=== PATIENT | male | born 1960 | race Caucasian/White ===

== ENCOUNTER 2021-11-22 17:24 | Observation (INO) ==
[2021-11-22] MEDS ORDERED: ACETAMINOPHEN 1000 MG/100 ML IV IV STA (17:52)
[2021-11-22] MEDS ORDERED: MoRPHine SULFATE 4 MG/ML 1 ML CARP\\VIAL IV PRN ×2 (17:52→20:18)
[2021-11-22] MEDS ORDERED: ONDANSETRON INJ 2 MG/ML 2 ML VIAL IV STA (17:52)
[2021-11-22] MEDS ORDERED: SODIUM CHLORIDE 0.9% 1000ML 1,000 ML IV STA (17:52)
[2021-11-22] MEDS ORDERED: KETOROLAC TROMETHAMINE 15 MG/ML VIAL IV STA (17:52)
--- NOTE | 2021-11-22 17:56 | Emergency Department Note ---
Impression & Plan RLQ abdominal pain, Renal colic, Ureteral stone ED Provider Note NAME: KAIA BLACK AGE: 60 SEX: M : 1960 ARRIVES VIA: Walk-In INFORMANT: [Patient] ED PROVIDER(S): [Damian Ramires MD] CHIEF COMPLAINT: Abdominal pain HISTORY OF PRESENT ILLNESS: The patient is a 60-year-old male who presents with several hours of increasing severe crampy lower abdominal pain. No nausea or vomiting, no fever, no diarrhea. The pain has become severe and he is beginning to sweat. The patient felt fine in the earlier part of the day. He has not been sick or ill. He has no history of similar issues. No surgical work on his abdomen. He has undergone a hip replacement in the recent past. The patient denies any bad food eaten, he has had no sick contacts. He cannot recall ever feeling this way before. REVIEW OF SYSTEMS: See HPI for pertinent positives and negatives. A total of ten systems were reviewed and were otherwise negative. PMHx/PSHx: See Below SOCIAL HISTORY: See Below. PHYSICAL EXAM: GENERAL: Patient is in moderate distress from pain. HEENT: No acute trauma, normocephalic atraumatic, mucous membranes moist, no nasal congestion, no scleral icterus. NECK: No stridor, no adenopathy, no meningismus, trachea is midline. LUNGS: Clear to auscultation bilaterally, no wheeze, no rhonchi, breath sounds equal. HEART: Without murmurs gallops or rubs, regular rate and rhythm. ABDOMEN: Soft, bowel sounds are hyperactive. No peritonitis. He is moderately tender in the right lower quadrant. No obvious hernia. EXTREMITIES: No cyanosis or edema, full range of motion of all the joints without pain or difficulty, no signs for acute trauma. NEUROLOGIC: Oriented x 3, no acute motor or sensory deficits, no focal weakness. SKIN: No rash, no jaundice, no diaphoresis. Groin: There is no obvious hernia, testicles nontender. DIFFERENTIAL DIAGNOSIS: Appendicitis, testicular torsion, diverticulitis, foodborne or viral illness, UTI, obstruction, mesenteric ischemia, aortic pathology, inflammatory bowel disease, renal colic, PUD, pancreatitis, biliary pathology, hernia, volvulus, constipation, as well as other pathologies. EMERGENCY DEPARTMENT COURSE/PROCEDURES: MEDICAL DECISION MAKING: There is no leukocytosis. The patient does have a very mild anemia. There is a normal platelet count. No concerning electrolyte abnormality, no renal failure. No worrisome liver enzyme elevation. No evidence for pancreatitis. Urinalysis shows hematuria, no infection. COVID test returned negative. Abdominal and pelvis CT shows a large 10 mm right distal ureteral stone with hydronephrosis. On exam, the patient appeared quite uncomfortable. The patient was quite uncomfortable with my initial evaluation. He received IV saline, IV Zofran, IV morphine and IV Toradol. He eventually received a dose of IV Dilaudid. He was given a dose of oral Flomax. He received IV Tylenol. The patient does feel improved but still has pain. I discussed his options at length. The patient prefers to stay here in the hospital for urologic intervention. He is concerned about trying to make the trip home to [place]. I did speak with case management, the on-call hospitalist has been consulted. Urology can evaluate the patient tomorrow for potential intervention. Past Med/Surg History Medical History Hypertension Kidney stone Social History Smoking Status: Never smoker Second Hand Exposure: No; Do You Dip or Chew Tobacco: No; Hx Alcohol Use: Yes Alcohol type: beer and other Hx Substance Use: No Preferred Language: Armenian Communication Ability: Effective Author'S Agent Required: No Beliefs That Will Affect Care: None Current Living Situation: Alone Feels Safe at Home: Yes Safety Concerns: Feels Safe At This Time Assistive Devices: Glasses Assistive Devices Comment: prescription sunglasses Allergies Allergies Allergy/AdvReac Type Severity Reaction Status Date / Time No Known Allergies Allergy Unverified 11/22/21 20:48 Home Meds Home Medications Medication Instructions Recorded Confirmed Herbal Prostate Tab 1 tab PO DAILY 11/22/21 11/22/21 amlodipine 5 mg-benazepril 20 mg 1 cap PO DAILY 11/22/21 11/22/21 capsule arginine oxoglurate 350 mg 0 mg PO DAILY 11/22/21 11/22/21 tablet,extended release (L-Arginine (alpha-ketoglutarate)) aspirin 81 mg tablet,delayed 81 mg PO HS 11/22/21 11/22/21 release atorvastatin 10 mg tablet 10 mg PO HS 11/22/21 11/22/21 coenzyme Q10 100 mg capsule 100 mg PO DAILY 11/22/21 11/22/21 (CoQ-10) fish, borage, flaxseed oils-omega 2 cap PO AMPM 11/22/21 11/22/21 3,6,9 comb no.1 1,200 mg capsule (Ransom 3-6-9) garlic 0 mg PO DAILY 11/22/21 11/22/21 olive leaf extract 250 mg capsule 0 mg PO DAILY 11/22/21 11/22/21 schisandra 500 mg capsule 0 mg PO DAILY 11/22/21 11/22/21 Results & Data (ED) Vital Signs Vital Signs - 24 hr 11/22/21 17:29 11/22/21 18:24 11/22/21 20:00 Temperature 36.8 C Temperature Source Temporal Artery Scan Pulse Rate 74 Pulse Rate [Apical] 67 67 Pulse Rhythm [Apical] Regular Regular Pulse Strength [Apical] Normal Respiratory Rate 18 19 16 Respiratory Effort / Characteristics Non-Labored Spontaneous Non-Labored Spontaneous Respiratory Depth Normal Normal Respiratory Pattern Regular Regular Blood Pressure 137/89 Blood Pressure [Right Arm] 145/90 H 150/90 H Blood Pressure Mean 105 Blood Pressure Mean [Right Arm] 108 110 Blood Pressure Position Sitting Blood Pressure Position [Right Arm] Sitting Pulse Oximetry 100 92 99 Oxygen Delivery Method Room Air Room Air Room Air Sepsis Recent Fever Within 48 Hours No Sepsis New/Unexplained Change in Mental Status N/A Sepsis Action Taken by Nursing No Action Required Home Medications Current Medication List: was personally reviewed by me Laboratory Data Attestation: I reviewed the patient's lab results. Result diagrams: 11/22/21 18:00 11/22/21 18:00 Lab Results 11/22/21 11/22/21 11/22/21 Range/Units 18:00 18:00 19:47 WBC 6.83 (4.8-10.8) K/uL RBC 4.46 L (4.7-6.1) M/uL Hgb 13.4 L (14.0-18.0) g/dL Hct 39.8 L (42-52) % MCV 89.2 (80-100) fL MCH 30.0 (25-34) pg MCHC 33.7 (32-36) g/dL RDW Std Deviation 44.5 (36.4-46.3) fL RDW Coeff of Jose 13.6 (11.5-14.5) % Plt Count 331 (130-400) K/uL MPV 9.6 (7.4-10.4) fL Immature Gran % (Auto) 0.1 % Neut % (Auto) 47.2 % Lymph % (Auto) 36.0 % [place] % (Auto) 12.3 % Eos % (Auto) 3.7 % Baso % (Auto) 0.7 % Neut # (Auto) 3.22 (1.4-6.5) K/uL Lymph # (Auto) 2.46 (1.2-3.4) K/uL [place] # (Auto) 0.84 H (0.11-0.59) K/uL Eos # (Auto) 0.25 (0-0.5) K/uL Baso # (Auto) 0.05 (0-0.2) K/uL Immature Gran # (Auto) 0.01 (0.00-0.02) K/uL Sodium 139 (136-145) mmol/L Potassium 4.0 (3.5-5.1) mmol/L Chloride 107 (98-107) mmol/L Carbon Dioxide 22 (21-32) mmol/L Anion Gap 10 (3-11) BUN 31 H (6-23) mg/dl Creatinine 1.03 (0.6-1.4) mg/dl Est Cr Clr Drug Dosing 88.7 ml/min Est GFR ( Amer) 91.1 ml/min Est GFR (Non-Af Amer) 78.6 ml/min BUN/Creatinine Ratio 30.1 H (10-20) Glucose 86 (70-99(Fasting)) mg/dl Calcium 9.4 (8.5-10.1) mg/dl Total Bilirubin 0.5 (0.2-1.0) mg/dl AST 17 (13-39) U/L ALT 18 (7-52) U/L Alkaline Phosphatase 75 (34-104) U/L Total Protein 7.3 (6.0-8.3) gm/dl Albumin 4.4 (3.4-5.0) gm/dl Globulin 2.9 (2.5-4.0) gm/dl Albumin/Globulin Ratio 1.5 (0.9-2) Lipase 18 (11-82) U/L Urine Color Yellow Urine Appearance Clear (Clear) Urine pH 7.5 (4.5-7.5) Ur Specific [place] 1.023 (1.000-1.030) Urine Protein Negative (Negative) Urine Glucose (UA) Negative (Negative) Urine Ketones Negative (Negative) Urine Blood 3+ H (Negative) Urine Nitrite Negative (Negative) Urine Bilirubin Negative (Negative) Urine Urobilinogen Negative (Negative) Ur Leukocyte Esterase Negative (Negative) Urine WBC (Auto) 1-5 (0-5) /hpf Urine RBC (Auto) >30 H (0-4) /hpf U Hyaline Cast (Auto) 0 (0-5) /lpf U Epithel Cells (Auto) 0-5 (0-5) /lpf Urine Bacteria (Auto) Negative (Negative) SARS-CoV-2, RNA, NAAT (NEGATIVE) 11/22/21 Range/Units 20:27 WBC (4.8-10.8) K/uL RBC (4.7-6.1) M/uL Hgb (14.0-18.0) g/dL Hct (42-52) % MCV (80-100) fL MCH (25-34) pg MCHC (32-36) g/dL RDW Std Deviation (36.4-46.3) fL RDW Coeff of Jose (11.5-14.5) % Plt Count (130-400) K/uL MPV (7.4-10.4) fL Immature Gran % (Auto) % Neut % (Auto) % Lymph % (Auto) % [place] % (Auto) % Eos % (Auto) % Baso % (Auto) % Neut # (Auto) (1.4-6.5) K/uL Lymph # (Auto) (1.2-3.4) K/uL [place] # (Auto) (0.11-0.59) K/uL Eos # (Auto) (0-0.5) K/uL Baso # (Auto) (0-0.2) K/uL Immature Gran # (Auto) (0.00-0.02) K/uL Sodium (136-145) mmol/L Potassium (3.5-5.1) mmol/L Chloride (98-107) mmol/L Carbon Dioxide (21-32) mmol/L Anion Gap (3-11) BUN (6-23) mg/dl Creatinine (0.6-1.4) mg/dl Est Cr Clr Drug Dosing ml/min Est GFR ( Amer) ml/min Est GFR (Non-Af Amer) ml/min BUN/Creatinine Ratio (10-20) Glucose (70-99(Fasting)) mg/dl Calcium (8.5-10.1) mg/dl Total Bilirubin (0.2-1.0) mg/dl AST (13-39) U/L ALT (7-52) U/L Alkaline Phosphatase (34-104) U/L Total Protein (6.0-8.3) gm/dl Albumin (3.4-5.0) gm/dl Globulin (2.5-4.0) gm/dl Albumin/Globulin Ratio (0.9-2) Lipase (11-82) U/L Urine Color Urine Appearance (Clear) Urine pH (4.5-7.5) Ur Specific [place] (1.000-1.030) Urine Protein (Negative) Urine Glucose (UA) (Negative) Urine Ketones (Negative) Urine Blood (Negative) Urine Nitrite (Negative) Urine Bilirubin (Negative) Urine Urobilinogen (Negative) Ur Leukocyte Esterase (Negative) Urine WBC (Auto) (0-5) /hpf Urine RBC (Auto) (0-4) /hpf U Hyaline Cast (Auto) (0-5) /lpf U Epithel Cells (Auto) (0-5) /lpf Urine Bacteria (Auto) (Negative) SARS-CoV-2, RNA, NAAT NEGATIVE (NEGATIVE) Administered Medications Sodium Chloride (Nss 1000ml) 1,000 mls @ 125 mls/hr IV .Q8H SELENA Stop: 12/22/21 22:40 Last Admin: 11/22/21 23:14 Dose: 125 mls/hr Documented by: [id number] Ketorolac Tromethamine (Ketorolac Tromethamine 15 Mg/Ml Vial) 15 mg IV Q6H PRN PRN Reason: Moderate Pain 4,5,6 Stop: 11/27/21 22:40 Last Admin: 11/22/21 23:12 Dose: 15 mg Documented by: [id number] Discontinued Medications Acetaminophen (Acetaminophen 1000 Mg/100 Ml Iv) 1,000 mg IV NOW STA Stop: 11/22/21 17:53 Last Admin: 11/22/21 18:05 Dose: 1,000 mg Documented by: [id number] Hydromorphone HCl (Hydromorphone Inj 0.5 Mg/0.5 Ml Syr) 0.5 mg IV NOW STA Stop: 11/22/21 20:54 Last Admin: 11/22/21 21:17 Dose: 0.5 mg Documented by: [id number] Sodium Chloride (Nss 1000ml) 1,000 mls @ 999 mls/hr IV .Q1H1M STA Stop: 11/22/21 18:52 Last Infusion: 11/22/21 19:07 Dose: 0 mls/hr Documented by: [id number] Admin: 11/22/21 18:09 Dose: 999 mls/hr Documented by: [id number] Ioversol (Optiray 320 100ml) 95 ml IV ONCE ONE Stop: 11/22/21 18:59 Last Admin: 11/22/21 19:00 Dose: 95 ml Documented by: [id number] Ketorolac Tromethamine (Ketorolac Tromethamine 15 Mg/Ml Vial) 15 mg IV NOW STA Stop: 11/22/21 17:53 Last Admin: 11/22/21 18:06 Dose: 15 mg Documented by: [id number] Morphine Sulfate (Morphine Sulfate 4 Mg/Ml 1 Ml Carp\Vial) 4 mg IV Q15M PRN PRN Reason: Pain Stop: 12/06/21 17:51 Last Admin: 11/22/21 18:06 Dose: 4 mg Documented by: [id number] Morphine Sulfate (Morphine Sulfate 4 Mg/Ml 1 Ml Carp\Vial) 4 mg IV NOW STA Stop: 11/22/21 19:12 Last Admin: 11/22/21 20:23 Dose: 4 mg Documented by: [id number] Ondansetron HCl (Ondansetron Inj 2 Mg/Ml 2 Ml Vial) 4 mg IV NOW STA Stop: 11/22/21 17:53 Last Admin: 11/22/21 18:06 Dose: 4 mg Documented by: [id number] Tamsulosin HCl (Tamsulosin Hcl 0.4 Mg Cap) 0.4 mg PO NOW ONE Stop: 11/22/21 20:19 Last Admin: 11/22/21 20:23 Dose: 0.4 mg Documented by: [id number] Imaging Data Radiologist's Impression: Abdomen/Pelvis CT 11/22/21 17:52 CT SCAN OF THE ABDOMEN AND PELVIS WITH IV CONTRAST CLINICAL HISTORY: Right lower quadrant abdominal pain. COMPARISON STUDY: No priors. TECHNIQUE: Following the IV administration of 95 cc of Optiray 320, CT scan of the abdomen and pelvis is performed from the lung bases to the proximal femora. Images are reviewed in the axial, sagittal, and coronal planes. IV contrast was administered without complication. A dose lowering technique was utilized adhering to the principles of ALARA. CT DOSE: 498.09 mGy.cm FINDINGS: Lung bases: The heart is normal in size and without pericardial effusion. The lung bases are clear noting bibasilar atelectasis. Liver: The contrast-enhanced liver is normal in size, contour, and attenuation. There is no intrahepatic biliary ductal dilatation. The hepatic veins and portal veins are patent. There are numerous hepatic cysts which measure up to 1.8 cm. Additional subcentimeter hepatic hypodensities also likely represent cysts but are too small for definitive characterization. Gallbladder: Unremarkable. Spleen: Normal in size and attenuation. Pancreas: Unremarkable. Adrenal glands: Unremarkable. Kidneys: The contrast enhanced kidneys are normal in size. There is a 10 mm obstructing calculus at the right ureteropelvic junction seen on axial image #117. This causes mild to moderate right-sided hydronephrosis. No additional right renal calculi are clearly identified on this contrast-enhanced examination and no left renal calculi are seen. There is no left-sided hydronephrosis. There is heterogeneous enhancement of the right kidney. The left kidney enhances normally. A 2.6 cm cyst is noted in the interpolar right kidney. Abdominal vasculature: The abdominal aorta is normal in course and caliber noting scattered foci of atherosclerotic calcification. Bowel: There is no bowel obstruction. Mild fecal retention is noted in the right colon. The appendix is well-visualized and normal. Peritoneum: There is no intraperitoneal free air or abdominal ascites. There is a fat-containing umbilical hernia. Lymphadenopathy: None. Pelvic viscera: Evaluation of the pelvis is degraded by streak artifact from a right hip arthroplasty. The prostate gland is mildly enlarged and heterogeneous. The bladder is normal as visualized. Skeletal structures: No lytic or blastic lesions are seen. There is mild lumbosacral spondylosis. A right hip arthroplasty is in place. A low-attenuation fluid collection overlies the greater trochanter of the right femur, measuring up to 4 cm seen on image #420. This is likely on a postoperative basis. IMPRESSION: 1. There is a 10 mm obstructing calculus at the right ureteropelvic junction. This causes moderate right hydronephrosis. 2. No additional renal calculi are clearly identified on this contrast-enhanced examination. 3. There is heterogeneous enhancement of the right kidney, likely related to obstruction/hydronephrosis. Correlate with clinical findings and urinalysis. 4. Additional findings as above. ACT 112: Negative or not required by law. Electronically signed by: Damian Crandall M.D. 11/22/2021 7:13 PM Discharge Plan Visit Data Chief Complaint: Abdominal Pain Stated Complaint: ABDOMINAL PAIN ED Provider: Damian Ramires Discharge Problem: RLQ abdominal pain, Renal colic, Ureteral stone Patient Disposition: Admitted As Inpatient Condition: Good Discharge Instructions Interventions: ED Discharge Assessment Last Done: 11/22/21 22:28
[2021-11-22 18:35] LABS: Albumin Globulin Ratio 1.5 (0.9-2); Albumin Level 4.4 gm/dl (3.4-5.0); BUN Creatinine Ratio 30.1 (10-20); Bilirubin,Total 0.5 mg/dl (0.2-1.0); Calcium 9.4 mg/dl (8.5-10.1); Creatinine Clr Calc Pharmacy 88.7 ml/min; Est GFR (African American) 91.1 ml/min; Est GFR (Non-African American) 78.6 ml/min; Globulin 2.9 gm/dl (2.5-4.0); Total Protein 7.3 gm/dl (6.0-8.3)
[2021-11-22 18:36] LABS: Basophils # (auto) 0.05 K/uL (0-0.2); Basophils % (auto) 0.7 %; Eosinophils # (auto) 0.25 K/uL (0-0.5); Eosinophils % (auto) 3.7 %; Hematocrit (blood only) 39.8 % (42-52); Hemoglobin 13.4 g/dL (14.0-18.0); Immature Granulocytes # (auto) 0.01 K/uL (0.00-0.02); Immature Granulocytes % (auto) 0.1 %; Lymphocytes # (auto) 2.46 K/uL (1.2-3.4); Mean Corpuscular Hgb Conc 33.7 g/dL (32-36); Mean Corpuscular Volume 89.2 fL (80-100); Mean Platelet Volume 9.6 fL (7.4-10.4); Monocytes # (auto) 0.84 K/uL (0.11-0.59); Monocytes % (auto) 12.3 %; Neutrophils # (auto) 3.22 K/uL (1.4-6.5); Neutrophils % (auto) 47.2 %; Platelet Count 331 K/uL (130-400); RDW Coefficient of Variation 13.6 % (11.5-14.5); RDW Standard Deviation 44.5 fL (36.4-46.3); Red Blood Count 4.46 M/uL (4.7-6.1); White Blood Count 6.83 K/uL (4.8-10.8)
[2021-11-22] MEDS ORDERED: OPTIRAY 320 100ml IV ONE (18:58)
[2021-11-22] MEDS ORDERED: MoRPHine SULFATE 4 MG/ML 1 ML CARP\\VIAL IV STA (19:11)
--- NOTE | 2021-11-22 19:15 | CT Scan Report ---
CT SCAN OF THE ABDOMEN AND PELVIS WITH IV CONTRAST CLINICAL HISTORY: Right lower quadrant abdominal pain. COMPARISON STUDY: No priors. TECHNIQUE: Following the IV administration of 95 cc of Optiray 320, CT scan of the abdomen and pelvi s is performed from the lung bases to the proximal femora. Images are reviewed in the axial, sagittal , and coronal planes. IV contrast was administered without complication. A dose lowering technique wa s utilized adhering to the principles of ALARA. CT DOSE: 498.09 mGy.cm FINDINGS: Lung bases: The heart is normal in size and without pericardial effusion. The lung bases are clear no ting bibasilar atelectasis. Liver: The contrast-enhanced liver is normal in size, contour, and attenuation. There is no intrahepa tic biliary ductal dilatation. The hepatic veins and portal veins are patent. There are numerous hepa tic cysts which measure up to 1.8 cm. Additional subcentimeter hepatic hypodensities also likely repr esent cysts but are too small for definitive characterization. Gallbladder: Unremarkable. Spleen: Normal in size and attenuation. Pancreas: Unremarkable. Adrenal glands: Unremarkable. Kidneys: The contrast enhanced kidneys are normal in size. There is a 10 mm obstructing calculus at t he right ureteropelvic junction seen on axial image #117. This causes mild to moderate right-sided hy dronephrosis. No additional right renal calculi are clearly identified on this contrast-enhanced exam ination and no left renal calculi are seen. There is no left-sided hydronephrosis. There is heterogen eous enhancement of the right kidney. The left kidney enhances normally. A 2.6 cm cyst is noted in th e interpolar right kidney. Abdominal vasculature: The abdominal aorta is normal in course and caliber noting scattered foci of a therosclerotic calcification. Bowel: There is no bowel obstruction. Mild fecal retention is noted in the right colon. The appendix is well-visualized and normal. Peritoneum: There is no intraperitoneal free air or abdominal ascites. There is a fat-containing umbi lical hernia. Lymphadenopathy: None. Pelvic viscera: Evaluation of the pelvis is degraded by streak artifact from a right hip arthroplasty . The prostate gland is mildly enlarged and heterogeneous. The bladder is normal as visualized. Skeletal structures: No lytic or blastic lesions are seen. There is mild lumbosacral spondylosis. A r ight hip arthroplasty is in place. A low-attenuation fluid collection overlies the greater trochanter of the right femur, measuring up to 4 cm seen on image #420. This is likely on a postoperative basis . IMPRESSION: 1. There is a 10 mm obstructing calculus at the right ureteropelvic junction. This causes moderate ri ght hydronephrosis. 2. No additional renal calculi are clearly identified on this contrast-enhanced examination. 3. There is heterogeneous enhancement of the right kidney, likely related to obstruction/hydronephros is. Correlate with clinical findings and urinalysis. 4. Additional findings as above. ACT 112: Negative or not required by law. Electronically signed by: Damian Crandall M.D. 11/22/2021 7:13 PM
[2021-11-22 20:01] LABS: Appearance Urine Clear (Clear); Bacteria Urine Automated Negative (Negative); Bilirubin Urine Negative (Negative); Blood Urine 3+ (Negative); Cast Urine Automated 0 /lpf (0-5); Color Urine Yellow; Epithelial Cell Urine Auto 0-5 /lpf (0-5); Glucose Urine UA Negative (Negative); Ketones Urine Negative (Negative); Leukocyte Esterase Urine Negative (Negative); Nitrite Urine Negative (Negative); Protein Urine Negative (Negative); RBC Urine Automated >30 /hpf (0-4); Specific Gravity Urine 1.023 (1.000-1.030); Urobilinogen Urine Negative (Negative); pH Urine 7.5 (4.5-7.5)
[2021-11-22] MEDS ORDERED: TAMSULOSIN HCL 0.4 MG CAP PO ONE (20:18)
[2021-11-22] MEDS ORDERED: HYDROmorphone INJ 0.5 MG/0.5 ML SYR IV STA (20:53)
[2021-11-22] MEDS ORDERED: ACETAMINOPHEN 325 MG TAB PO PRN (22:41)
[2021-11-22] MEDS ORDERED: POLYETHYLENE (MIRALAX) 17 GM PACK PO PRN (22:41)
[2021-11-22] MEDS ORDERED: HYDROmorphone INJ 0.5 MG/0.5 ML SYR IV PRN (22:41)
[2021-11-22] MEDS ORDERED: KETOROLAC TROMETHAMINE 15 MG/ML VIAL IV PRN (22:41)
[2021-11-22] MEDS ORDERED: ONDANSETRON INJ 2 MG/ML 2 ML VIAL IV PRN (22:41)
[2021-11-22] MEDS: SODIUM CHLORIDE 0.9% 1000ML 1,000 ML IV SCH (23:14)
--- NOTE | 2021-11-22 23:59 | History and Physical Report ---
DATE OF ADMISSION: 11/22/2021. CHIEF COMPLAINT: Right side abdominal pain. HISTORY OF PRESENT ILLNESS: This is a 60-year-old male with past medical history significant for hypertension, high cholesterol, presents with right abdominal pain and right renal colic. The patient is traveling from [place]. He works for [employer]. He was visiting urology offices. He was supposed to come to [facility]. A couple of hours from [place], he started having severe right flank pain. Once he came to [facility] it was unbearable and he was come to the hospital and imaging studies showed right 10 mm UVJ junction stone. He never had kidney stones in the past. Denies any burning micturitions. No hematuria. No fever, no chills. Normal bowel and bladder movements. No abdominal pain. Was somewhat nauseous, but no vomiting, no chest pain, no shortness of breath, no cough, no headache, no blurred visions, no earache, no runny nose, no sore throat. Appetite is okay. Currently, resting comfortably, hemodynamically stable. ALLERGIES: No known drug allergies. PAST MEDICAL HISTORY: As mentioned above. PAST SURGICAL HISTORY: Right total hip replacement 11 weeks ago. HOME MEDICATIONS: Amlodipine/benazepril 5/20 mg p.o. daily, aspirin 81 mg p.o. daily, atorvastatin 10 mg p.o. daily. FAMILY HISTORY: Significant for father had CABG at the age of 86. SOCIAL HISTORY: Once in a while smokes cigars, social drinking, no drug use. REVIEW OF SYSTEMS: As per HPI. Rest of review of systems is negative. PHYSICAL EXAMINATION: GENERAL: The patient is of moderate build, not in acute distress. VITAL SIGNS: Temperature 36.8, pulse 67, respiratory rate 16, blood pressure 150/90, oxygen 99% on room air. HEENT: Pupils equal, round and reactive to light. Oral mucosa moist. NECK: No JVD, no neck masses. CARDIOVASCULAR: S1 and S2 heard. Regular rate and rhythm. No murmur, no gallop. RESPIRATORY SYSTEM: Normal AP diameter. No accessory muscle use. No wheezing, no crackles. ABDOMEN: Soft. Bowel sounds are present, nontender, no distention. No CVA tenderness. No guarding, no rigidity. CENTRAL NERVOUS SYSTEM: Cranial nerves II-XII grossly intact, nonfocal. EXTREMITIES: No edema, no erythema. LABORATORY DATA: WBC 6.8, hemoglobin 13.4, hematocrit 39.8, platelets 331. Sodium 139, potassium 4, chloride 107, bicarb 22, BUN 31, creatinine 1.03, serum glucose 86, calcium 9.4, total bilirubin 0.5, AST 17, ALT 18, alkaline phosphatase 75, lipase 18. Urinalysis, +3 blood, bacteria negative. SARS-CoV-2 rapid test negative. IMAGING DATA: CT of the abdomen and pelvis shows 10 mm obstructing calculus at the right UVJ junction with moderate right hydronephrosis. ASSESSMENT AND PLAN: A 60-year-old male who presents with right renal colic. 1. Right renal colic: A 10 mm obstructive right UVJ junction stone. Received Flomax, Toradol, and morphine in the ER. Will keep him n.p.o. after midnight, IV fluids, IV antiemetics, IV Dilaudid p.r.n., IV Toradol p.r.n. Consult urology in the a.m. for further recommendations. 2. History of hypertension: Continue his home medication of amlodipine and benazepril. 3. History of hyperlipidemia: Continue statin. 4. Deep venous thrombosis prophylaxis: Sequential compression devices. DISPOSITION: Admit to medical floor. Expect to discharge home and follow with family doctor. Job ID: [id number] [facility]
[2021-11-23 05:42] LABS: Basophils # (auto) 0.03 K/uL (0-0.2); Basophils % (auto) 0.5 %; Eosinophils # (auto) 0.15 K/uL (0-0.5); Eosinophils % (auto) 2.6 %; Hemoglobin 12.1 g/dL (14.0-18.0); Immature Granulocytes # (auto) 0.01 K/uL (0.00-0.02); Immature Granulocytes % (auto) 0.2 %; Lymphocytes # (auto) 1.54 K/uL (1.2-3.4); Mean Corpuscular Hemoglobin 30.1 pg (25-34); Mean Corpuscular Hgb Conc 33.6 g/dL (32-36); Mean Corpuscular Volume 89.6 fL (80-100); Monocytes % (auto) 15.8 %; Neutrophils # (auto) 3.08 K/uL (1.4-6.5); Neutrophils % (auto) 53.9 %; Platelet Count 247 K/uL (130-400); RDW Coefficient of Variation 13.6 % (11.5-14.5); RDW Standard Deviation 44.7 fL (36.4-46.3); Red Blood Count 4.02 M/uL (4.7-6.1); White Blood Count 5.71 K/uL (4.8-10.8)
[2021-11-23] MEDS: SODIUM CHLORIDE 0.9% 1000ML 1,000 ML IV SCH ×3 (05:49→22:24)
[2021-11-23 06:02] LABS: BUN Creatinine Ratio 28.4 (10-20); Calcium 8.4 mg/dl (8.5-10.1); Creatinine Clr Calc Pharmacy 103.8 ml/min; Est GFR (African American) 108.2 ml/min; Est GFR (Non-African American) 93.4 ml/min; Magnesium 2.1 mg/dl (1.7-2.4)
[2021-11-23] MEDS: ENALAPRIL MALEATE 10 MG TAB PO SCH (08:29)
[2021-11-23] MEDS: amLODIPine BESYLATE 5 MG TAB PO SCH (08:29)
[2021-11-23] MEDS: TAMSULOSIN HCL 0.4 MG CAP PO SCH (08:30)
--- NOTE | 2021-11-23 10:05 | Urology Consultation ---
Date of Consultation November 23, 2021 Assessment & Plan (1) Ureteral stone: (2) Renal colic: 60yo M who presented with intractable right flank pain and found to have an obstructing 10mm right UPJ stone. - Pt subjectively feeling better this morning. - Afebrile, hemodynamically stable, non-toxic appearing. - Labs reviewed - Wbc and creatinine normal. - Urinalysis with no evidence of infection. - Voiding without issue. - Discussed options for acute stone management with cystoscopy and stent placement. Ureteral stents were discussed as well as postoperative issues and pain management. Discussed that he will need another procedure for stone treatment in the future. Also discussed option for conservative management with symptom control since his pain is well controlled at this time with plan to set up stone treatment with his primary urologist. Risks/benefits of each discussed. - Patient prefers to proceed with stent placement today. He is aware that he will need to stay 24hours postoperatively per anesthesia as he drove himself here from [place]. - Findings reviewed with Dr. Hammond. Given his intractable right flank pain in the context of an obstructing 10mm right UPJ stone, will proceed with OR for cystoscopy, right retrograde pyelogram, right ureteral stent placement. - Risks and benefits to be reviewed with patient by Dr. Hammond. OR notified. Covid test negative. Will cover with IV Ancef preoperatively. - Keep NPO. - Continue supportive care and pain management. - Will continue to follow. Supervising Physician Co-Signing Physician Notes Agree with plan above. To the OR for right ureteral stent placement per patient desire. He understands that he will need to stay 24 hours post anesthesia as he will be driving himself back home to [place]. History of Present Illness Reason for Consultation: right UPJ stone Attending Physician: Patrick Kenney MD History of Present Illness 60-year-old male patient with a past medical history significant for hypertension, high cholesterol who presented to the ED with a sudden onset of severe right flank pain. A CT abdomen pelvis was obtained and notable for a 10mm right UPJ stone with moderate right hydronephrosis. On arrival, he was afebrile. No leukocytosis. Renal function normal. Urinalysis with 3+blood, >30RBC, but otherwise negative. He was treated with IVF, IV pain medication, and admitted to medicine for further management. CT abdomen pelvis IMPRESSION: 1. There is a 10 mm obstructing calculus at the right ureteropelvic junction. This causes moderate right hydronephrosis. 2. No additional renal calculi are clearly identified on this contrast-enhanced examination. 3. There is heterogeneous enhancement of the right kidney, likely related to obstruction/hydronephrosis. Correlate with clinical findings and urinalysis. 4. Additional findings as above. Pt examined at bedside this AM. Awake, resting in bed on arrival. No acute distress. Reports pain has significantly improved since arrival. No fevers or chills. Denies nausea or vomiting. Voiding without issue. Denies hematuria/dysuria. Has been NPO. Denies prior hx of stones. Follows with urology in [place] - Dr. Ureña. Allergies Allergy/AdvReac Type Severity Reaction Status Date / Time No Known Allergies Allergy Unverified 11/22/21 20:48 Home Medications Medication Instructions Recorded Confirmed Type Herbal Prostate Tab 1 tab PO DAILY 11/22/21 11/22/21 History amlodipine 5 mg-benazepril 20 mg 1 cap PO DAILY 11/22/21 11/22/21 History capsule arginine oxoglurate 350 mg 0 mg PO DAILY 11/22/21 11/22/21 History tablet,extended release (L-Arginine (alpha-ketoglutarate)) aspirin 81 mg tablet,delayed 81 mg PO HS 11/22/21 11/22/21 History release atorvastatin 10 mg tablet 10 mg PO HS 11/22/21 11/22/21 History coenzyme Q10 100 mg capsule 100 mg PO DAILY 11/22/21 11/22/21 History (CoQ-10) fish, borage, flaxseed oils-omega 2 cap PO AMPM 11/22/21 11/22/21 History 3,6,9 comb no.1 1,200 mg capsule ([place] 3-6-9) garlic 0 mg PO DAILY 11/22/21 11/22/21 History olive leaf extract 250 mg capsule 0 mg PO DAILY 11/22/21 11/22/21 History schisandra 500 mg capsule 0 mg PO DAILY 11/22/21 11/22/21 History Patient History Medical History Hypertension Kidney stone Social History Smoking Status: Never smoker Second Hand Exposure: No; Do You Dip or Chew Tobacco: No; Hx Alcohol Use: Yes Alcohol type: beer and other Hx Substance Use: No Preferred Language: Greenlandic Communication Ability: Effective Protection Agent Required: No Beliefs That Will Affect Care: None Current Living Situation: Alone Feels Safe at Home: Yes Safety Concerns: Feels Safe At This Time Assistive Devices: Glasses Assistive Devices Comment: prescription sunglasses Review of Systems Review of Systems: All systems reviewed & are unremarkable except as noted in HPI & below Physical Exam Constitutional: well developed and well nourished; no acute distress and not ill appearing Neck: normal visual inspection Respiratory: normal respiratory effort and able to speak in complete sentences; no labored breathing and no audible wheezes Gastrointestinal (Abdomen): Inspection/Auscultation: abdomen normal to inspection; abdomen not distended Musculoskeletal: Head/Neck/Chest: normocephalic Skin: No visible rashes or lesions to exposed skin areas Neurologic: moves all extremities and awake Psychiatric: Orientation: alert, oriented x 3 and cooperative Genitourinary: no CVA tenderness Results & Data ([facility]) Vital Signs (Past 12 Hours) Vital Signs Temp Pulse Pulse Resp BP Pulse Ox 11/23/21 07:22 36.6 C 57 L 14 128/71 96 11/22/21 23:05 36.6 C 62 18 127/74 96 PG Care Time/CCT Total # of Minutes Spent Total Time Spent with Patient: Total time spent is greater than 50% in coordination of care (as documented) at patient's floor/unit and/or counseling patient: Coding Level of Care Code 44811 Inpt Consult Level 4 Diagnoses Ureteral stone N20.1 Renal colic N23
[2021-11-23] MEDS ORDERED: ceFAZolin 2000MG 2,000 MG/15 ML SYR IV ONE (10:18)
--- NOTE | 2021-11-23 10:38 | Anesthesiology Consultation ---
Date of Service November 23, 2021 Assessment & Plan Chart Review Chart Review: Acceptable Risk for Surgery and Patient NOT seen in Pre Admission Testing Consults Requested none ASA [id number] Proposed Anesthesia Anesthesia Type: MAC History Surgery Operation Date: 11/23/21 08:40 Proposed Procedures p Cystoscopy Right Retrograde Pyelogram with Stent Placement - Joao Hammond MD Height/Weight Height: 6 ft 2 in Weight: 91.8 kg Allergies Allergy/AdvReac Type Severity Reaction Status Date / Time No Known Allergies Allergy Unverified 11/22/21 20:48 Medications Home Medications Medication Instructions Recorded Confirmed Last Taken Herbal Prostate Tab 1 tab PO DAILY 11/22/21 11/22/21 Unknown amlodipine 5 mg-benazepril 20 mg 1 cap PO DAILY 11/22/21 11/22/21 11/22/21 capsule arginine oxoglurate 350 mg 0 mg PO DAILY 11/22/21 11/22/21 Unknown tablet,extended release (L-Arginine (alpha-ketoglutarate)) aspirin 81 mg tablet,delayed 81 mg PO HS 11/22/21 11/22/21 Unknown release atorvastatin 10 mg tablet 10 mg PO HS 11/22/21 11/22/21 Unknown coenzyme Q10 100 mg capsule 100 mg PO DAILY 11/22/21 11/22/21 Unknown (CoQ-10) fish, borage, flaxseed oils-omega 2 cap PO AMPM 11/22/21 11/22/21 Unknown 3,6,9 comb no.1 1,200 mg capsule ([place] 3-6-9) garlic 0 mg PO DAILY 11/22/21 11/22/21 Unknown olive leaf extract 250 mg capsule 0 mg PO DAILY 11/22/21 11/22/21 Unknown schisandra 500 mg capsule 0 mg PO DAILY 11/22/21 11/22/21 Unknown Active Medications Generic Name Dose Route Start Last Admin Trade Name Freq PRN Reason Stop Dose Admin Amlodipine Besylate 5 mg 11/23/21 09:00 11/23/21 08:29 Amlodipine Besylate 5 Mg Tab PO 12/23/21 08:59 5 mg DAILY SELENA Administration Enalapril Maleate 20 mg 11/23/21 09:00 11/23/21 08:29 Enalapril Maleate 10 Mg Tab PO 12/23/21 08:59 20 mg DAILY SELENA Administration Sodium Chloride 1,000 mls @ 125 mls/hr 11/22/21 22:41 11/23/21 05:49 Nss 1000ml IV 12/22/21 22:40 125 mls/hr .Q8H SELENA Administration Ketorolac Tromethamine 15 mg 11/22/21 22:41 11/22/21 23:12 Ketorolac Tromethamine 15 Mg/Ml Vial IV 11/27/21 22:40 15 mg Q6H PRN Administration Moderate Pain 4,5,6 Tamsulosin HCl 0.4 mg 11/23/21 09:00 11/23/21 08:30 Tamsulosin Hcl 0.4 Mg Cap PO 12/23/21 08:59 0.4 mg QAM SELENA Administration NPO Date Last Intake of Fluids: 11/22/21 Time Last Intake of Fluids: 23:59 Date Last Intake of Solids: 11/22/21 Time Last Intake of Solids: 23:59 Past Medical History Medical History Hypertension Kidney stone Hyperlipidemia;ASCVD Abd. Aorta plaques Exercise / Class Metabolic Activity II 4-5 Yardwork/Stairs/Walk up hill Past Anesthesia History No Hx of Anesthesia Complications and No Family Hx of Anesthesia Complications History of PONV No Hx of PONV and No Hx of Motion Sickness Social History Smoking Status: Never smoker Do You Dip or Chew Tobacco: No Hx Alcohol Use: Yes Alcohol type: beer and other alcohol intake frequency: holidays/special occasions only Hx Substance Use: No Physical Exam Vital Signs Last Vital Signs Temp 36.6 C 11/23/21 07:22 Pulse 57 L 11/23/21 07:22 Resp 14 11/23/21 07:22 BP 128/71 11/23/21 07:22 Pulse Ox 96 11/23/21 07:22 Testing Laboratory Results 11/23/21 05:24 11/23/21 05:24 Urine Color Yellow 11/22/21 19:47 Urine Appearance Clear (Clear) 11/22/21 19:47 Urine pH 7.5 (4.5-7.5) 11/22/21 19:47 Ur Specific [place] 1.023 (1.000-1.030) 11/22/21 19:47 Urine Protein Negative (Negative) 11/22/21 19:47 Urine Glucose (UA) Negative (Negative) 11/22/21 19:47 Urine Ketones Negative (Negative) 11/22/21 19:47 Urine Nitrite Negative (Negative) 11/22/21 19:47 Ur Leukocyte Esterase Negative (Negative) 11/22/21 19:47 Urine WBC (Auto) 1-5 /hpf (0-5) 11/22/21 19:47 Urine RBC (Auto) >30 /hpf (0-4) H 11/22/21 19:47 U Hyaline Cast (Auto) 0 /lpf (0-5) 11/22/21 19:47 U Epithel Cells (Auto) 0-5 /lpf (0-5) 11/22/21 19:47 Urine Bacteria (Auto) Negative (Negative) 11/22/21 19:47
[2021-11-23] MEDS ORDERED: NALOXONE HCL 0.4 MG/1 ML VIAL/CARP IV PRN (11:33)
[2021-11-23] MEDS ORDERED: PROMETHAZINE HCL 12.5 MG in SODIUM CHLORIDE 0.9% 50 ML IV PRN (11:33)
[2021-11-23] MEDS ORDERED: ATROPINE SULFATE 0.1 MG/ML 10ML SYR IV PRN (11:33)
[2021-11-23] MEDS ORDERED: ONDANSETRON INJ 2 MG/ML 2 ML VIAL IV PRN (11:33)
[2021-11-23] MEDS ORDERED: fentaNYL citrate 100 MCG/2 ML VIAL IV PRN (11:33)
[2021-11-23] MEDS ORDERED: LABETALOL HCL IV 5 MG/ML 20ML IV PRN (11:33)
[2021-11-23] MEDS ORDERED: ePHEDrine sulfate 50 MG/ML AMP IV PRN (11:33)
[2021-11-23] MEDS ORDERED: FLUMAZENIL 0.1 MG/1 ML 10 ML VIAL IV PRN (11:33)
[2021-11-23] MEDS ORDERED: PROPOFOL IV EMULSION 10 MG/ML 20 ML VIAL IV ONE (11:36)
[2021-11-23] MEDS ORDERED: fentaNYL citrate 100 MCG/2 ML VIAL ONE (11:38)
[2021-11-23] MEDS ORDERED: MIDAZOLAM HCL 1 MG/ML 2ML VIAL ONE (11:38)
--- NOTE | 2021-11-23 12:02 | Electrocardiogram Report ---
Test Reason : Blood Pressure : / mmHG Vent. Rate : 065 BPM Atrial Rate : 065 BPM P-R Int : 162 ms QRS Dur : 092 ms QT Int : 420 ms P-R-T Axes : 063 061 025 degrees QTc Int : 436 ms Normal sinus rhythm Possible Inferior infarct , age undetermined Abnormal ECG No previous ECGs available Confirmed by Trell Henderson ([id number]) on 11/23/2021 12:01:59 PM Referred By: REFERRED SELF Confirmed By:Surjit Henderson
[2021-11-23] MEDS ORDERED: DIATRIZOATE MEGLUMINE 30% 100ML VIAL INSTIL ONE (12:17)
--- NOTE | 2021-11-23 12:18 | Post Operative Brief Note ---
PG Immediate Post Op with CF Date of Surgery November 23, 2021 Pre & Post Diagnosis Operation Date: 11/23/21 08:40 Pre-Op Diagnosis: Right ureteral calculus Post-Op Diagnosis: Right ureteral calculus I identified the patient and participated in the time-out.: Yes Procedure Operation Date: 11/23/21 08:40 Actual Procedures p Cystoscopy Right Retrograde Pyelogram with Stent Placement(Right) - Joao Hammond MD Surgeon Joao Hammond MD Cigar Wrapper Tender Automatic None Estimated Blood Loss 0 Findings See Below Stent in appropriate position Drains Other (6x28 R stent ) Anesthesia Type MAC Complications none
--- NOTE | 2021-11-23 12:18 | Operative Report ---
PG Post Operative Report Pre & Post Diagnosis Operation Date: 11/23/21 08:40 Pre-Op Diagnosis: ABDOMINAL PAIN Post-Op Diagnosis: ABDOMINAL PAIN I identified the patient and participated in the time-out.: Yes Procedure Operation Date: 11/23/21 08:40 Actual Procedures p Cystoscopy Right Retrograde Pyelogram with radiographic interpretation and stent Placement(Right) - Joao Hammond MD Surgeon Joao Hammond MD Sports Teacher None Estimated Blood Loss 0 Findings See Below Normal urethra and bladder Right retrograde pyelogram showed mild hydronephrosis Right ureteral stent in appropriate position Specimens None Drains 6 Chadian by 28 cm right ureteral stent Anesthesia Type MAC Complications none Indications 60-year-old male with a right 1 cm UPJ obstructing stone. White blood cell count and creatinine normal. Urinalysis nonconcerning for infection. Patient opted for stent placement. He has a primary urologist back home in [place] and will follow up with them for stone treatment. Description of Procedure After informed consent was obtained, the patient was transported operative suite. MAC anesthesia was induced. The patient was placed in dorsolithotomy position prepped and draped in a sterile fashion. They received preoperative Ancef for antibiotic prophylaxis. An appropriate surgical timeout was performed. A 22 [place] rigid scope was inserted per urethra into the bladder. Saez cystoscopy revealed no stones or lesions. I turned my attention the right ureteral orifice and intubated this with a 5 [place] open-ended catheter. A right retrograde pyelogram was shot which showed mild hydronephrosis. A sensor wire was advanced into the kidney and confirmed fluoroscopically. A 6 [place] by 28 cm right ureteral stent was deployed with a good proximal coil in the renal pelvis and a good distal coil noted in the bladder, confirmed fluoroscopically and under direct visualization, respectively. The bladder was emptied and the scope was removed. This concluded the end of the case. All counts were correct at the end of the case. I was present, scrubbed, and actively participated for the entirety of the procedure. I attest to the content of the Intraoperative Record and any orders documented therein. Any exceptions are noted below.
--- NOTE | 2021-11-23 12:42 | Fluoroscopy Report ---
FL retrograde includes kub CLINICAL HISTORY: RT TECHNIQUE: 4 views were obtained with the C-arm in the OR with the above procedure. Total fluoroscopy time was 10 seconds. Total skin dose was 2.59 mGy. Comparison: None available at the time of this dictation. FINDINGS/IMPRESSION: Intraoperative images were obtained of right retrograde pyelogram and stent plac ement. Please correlate with intraoperative fluoroscopy and operative report. ACT 112: Negative or not required by law. Electronically signed by: Naveed Escobar M.D. 11/23/2021 12:41 PM
--- NOTE | 2021-11-23 13:29 | Hospitalist Progress Note ---
Date of Service November 23, 2021 Assessment & Plan (1) Renal colic: Plan: #. Right renal colic #. Obstructive right UVJ stone Patient presented with right abdominal pain and renal colic Admitting labs reviewed, admitting imaging with right UVJ 10 mm obstructive stone Urology on board, Flomax, Toradol, morphine, cystoscopy right retrograde pyelogram with stent placement today by Dr. Manish Dobbs when cleared by urology. #. Other chronic medical conditions: HTN, HLD Continue home meds as and when able #. DVT prophylaxis: SCDs #. Disposition: Likely DC tomorrow, follow-up with family doctor and urology doctor. Admission and Anticipated Discharge Date Admission Date: November 22, 2021 Subjective Patient seen and examined at bedside as a follow-up of right renal colic and 10 mm obstructive right UVJ junction stone. Patient was lying in bed, on room air, NAD, reported pain under control at the time of bedside exam. Patient would like to drive back to [place] today after the stent is placed, seems like per anesthesia, he will need to stay 24 hours postoperatively. Patient denies headache/dizziness/fever/pain or burning with passing urine/no costovertebral angle tenderness on exam/other review of symptoms. Physical Exam Physical Exam: GENERAL: Alert and oriented x3. NAD, on RA. HEENT: No pallor, no icterus. Pupils equal, round and reactive to light. Oral mucosa moist. NECK: No JVD, no neck masses. HEART: S1 and S2 heard. Regular rate and rhythm. No murmur, no gallop. RESPIRATORY SYSTEM: Normal AP diameter. No accessory muscle use. No wheezing, no crackles. ABDOMEN: Soft, bowel sounds present, nontender, no distention. No costovertebral angle tenderness on exam. CENTRAL NERVOUS SYSTEM: No facial droop. Speech is clear. Obeys simple commands. Moves extremities. EXTREMITIES: No edema, no erythema seen. Results & Data Results & Data ([facility]) Vital Signs (Past 12 Hours) Vital Signs Temp Pulse Pulse Resp BP Pulse Ox 11/23/21 13:20 57 L 14 101/56 L 96 11/23/21 13:10 61 20 105/60 95 11/23/21 13:00 36.2 C L 57 L 15 101/61 93 11/23/21 12:50 60 16 99/55 L 97 11/23/21 12:40 62 12 107/47 L 99 11/23/21 12:34 36.5 C 67 12 98/48 L 91 11/23/21 11:26 36.6 C 67 20 141/77 H 95 11/23/21 07:22 36.6 C 57 L 14 128/71 96
--- NOTE | 2021-11-23 14:08 | Anesthesiology Progress Note ---
Date of Service November 23, 2021 Anesthesia Post Procedure Vital Signs Vital Signs: Temp Pulse Pulse Pulse Pulse Resp BP 11/23/21 13:40 36.4 C L 57 L 16 11/23/21 13:20 57 L 14 11/23/21 13:10 61 20 11/23/21 13:00 36.2 C L 57 L 15 11/23/21 12:50 60 16 11/23/21 12:40 62 12 11/23/21 12:34 36.5 C 67 12 11/23/21 11:26 36.6 C 67 20 11/23/21 07:22 36.6 C 57 L 14 11/22/21 23:05 36.6 C 62 18 11/22/21 21:43 61 16 11/22/21 20:00 67 16 11/22/21 18:24 67 19 11/22/21 17:29 36.8 C 74 18 137/89 BP BP Pulse Ox 11/23/21 13:40 116/64 95 11/23/21 13:20 101/56 L 96 11/23/21 13:10 105/60 95 11/23/21 13:00 101/61 93 11/23/21 12:50 99/55 L 97 11/23/21 12:40 107/47 L 99 11/23/21 12:34 98/48 L 91 11/23/21 11:26 141/77 H 95 11/23/21 07:22 128/71 96 11/22/21 23:05 127/74 96 11/22/21 21:43 115/67 98 11/22/21 20:00 150/90 H 99 11/22/21 18:24 145/90 H 92 11/22/21 17:29 100 Pain Intensity Lower Abdomen: Pain Intensity: 2 Transfer of Care Handoff Completed per policy Notes Mental Status: alert / awake / arousable Patient Amnestic to Procedure: Yes Nausea / Vomiting: adequately controlled Pain: adequately controlled Airway Patency, RR, SpO2: stable & adequate BP & HR: stable & adequate Hydration State: stable & adequate Anesthetic Complications: no major complications apparent
--- NOTE | 2021-11-23 20:18 | XRay Report ---
KUB CLINICAL HISTORY: nephrolithiasis COMPARISON STUDY: CT of the abdomen and pelvis November 22, 2021. FINDINGS: Right ureteral stent is in place. The previously described right-sided calculus, measuring 8 mm, is now within the right kidney. There is an adjacent smaller calculus/fragment. Pelvic calcific ations represent vascular calcifications. No ureteral calculi or fragments are identified. IMPRESSION: 1. Right ureteral stent in place. Right-sided nephrolithiasis, as described above. 2. No ureteral calculi or fragments identified. ACT 112: Negative or not required by law. Electronically signed by: Earl Perkins M.D. 11/23/2021 8:16 PM
[2021-11-23] MEDS ORDERED: ATORVASTATIN 10 MG TAB PO SCH (21:00)
[2021-11-23] MEDS ORDERED: ASPIRIN 81 MG ECTAB PO SCH (21:00)
[2021-11-24 06:47] LABS: Hematocrit (blood only) 37.3 % (42-52); Hemoglobin 12.4 g/dL (14.0-18.0); Mean Corpuscular Hemoglobin 29.5 pg (25-34); Mean Corpuscular Hgb Conc 33.2 g/dL (32-36); Mean Corpuscular Volume 88.6 fL (80-100); Mean Platelet Volume 9.1 fL (7.4-10.4); Platelet Count 265 K/uL (130-400); RDW Coefficient of Variation 13.6 % (11.5-14.5); RDW Standard Deviation 44.4 fL (36.4-46.3); Red Blood Count 4.21 M/uL (4.7-6.1); White Blood Count 6.09 K/uL (4.8-10.8)
[2021-11-24] MEDS: SODIUM CHLORIDE 0.9% 1000ML 1,000 ML IV SCH (06:49)
[2021-11-24 07:03] LABS: BUN Creatinine Ratio 15.5 (10-20); Calcium 8.3 mg/dl (8.5-10.1); Creatinine Clr Calc Pharmacy 128.6 ml/min; Est GFR (African American) 118.2 ml/min; Potassium 3.9 mmol/L (3.5-5.1)
[2021-11-24] MEDS: amLODIPine BESYLATE 5 MG TAB PO SCH (08:00)
[2021-11-24] MEDS: TAMSULOSIN HCL 0.4 MG CAP PO SCH (08:01)
[2021-11-24] MEDS: ENALAPRIL MALEATE 10 MG TAB PO SCH (08:01)
--- NOTE | 2021-11-24 08:26 | Urology Progress Note ---
Date of Service November 24, 2021 Assessment & Plan (1) Ureteral stone: Plan: 60 yo M with 1cm proximal right ureteral calculus s/p cystoscopy and right stent placement on 11/23/21 -Doing well, pain controlled -Flomax, ditropan and colace sent to pharmacy -Stable for discharge from urologic perspective once patient has 24-hour jamee postanesthesia as he is driving himself back to [place] Patient will follow-up with his local urologist for stone treatment Admission and Anticipated Discharge Date Admission Date: November 22, 2021 Subjective No acute issues overnight. Pain well controlled. Voiding spontaneously. Labs stable. Review of Systems Review of Systems: 14 point review of systems negative outside of what is listed above in HPI Physical Exam Physical Exam: General: Alert and oriented, no acute distress HEENT: Normocephalic, mucous membranes moist Pulmonary: Nonlabored respirations Abdomen: Nondistended Extremities: Moves all 4 spontaneously Neuro: No gross deficits Skin: Warm, dry, no rashes noted Results & Data ([facility]) Vital Signs (Past 12 Hours) Vital Signs Temp Pulse Resp BP BP Pulse Ox 11/24/21 07:35 37.2 C 66 18 130/79 93 11/24/21 04:39 36.7 C 59 L 15 130/77 95 11/23/21 22:26 36.8 C 68 16 128/75 96 PG Care Time/CCT Total # of Minutes Spent Total Time Spent with Patient: Total time spent is greater than 50% in coordination of care (as documented) at patient's floor/unit and/or counseling patient: C[place] [address] Subseq Hosp Care Lvl 2 Patient Type Established Diagnoses Ureteral stone N20.1
--- NOTE | 2021-11-24 11:21 | Discharge Summary ---
Date of Service November 24, 2021 Admission HPI Per Admitting Provider CHIEF COMPLAINT: Right side abdominal pain. HISTORY OF PRESENT ILLNESS: This is a 60-year-old male with past medical history significant for hypertension, high cholesterol, presents with right abdominal pain and right renal colic. The patient is traveling from [place]. He works for [employer]. He was visiting urology offices. He was supposed to come to [place] urology office. A couple of hours from [place], he started having severe right flank pain. Once he came to [facility] it was unbearable and he was come to the hospital and imaging studies showed right 10 mm UVJ junction stone. He never had kidney stones in the past. Denies any burning micturitions. No hematuria. No fever, no chills. Normal bowel and bladder movements. No abdominal pain. Was somewhat nauseous, but no vomiting, no chest pain, no shortness of breath, no cough, no headache, no blurred visions, no earache, no runny nose, no sore throat. Appetite is okay. Currently, resting comfortably, hemodynamically stable. ALLERGIES: No known drug allergies. PAST MEDICAL HISTORY: As mentioned above. PAST SURGICAL HISTORY: Right total hip replacement 11 weeks ago. HOME MEDICATIONS: Amlodipine/benazepril 5/20 mg p.o. daily, aspirin 81 mg p.o. daily, atorvastatin 10 mg p.o. daily. FAMILY HISTORY: Significant for father had CABG at the age of 86. SOCIAL HISTORY: Once in a while smokes cigars, social drinking, no drug use. REVIEW OF SYSTEMS: As per HPI. Rest of review of systems is negative. Admission Exam Per Admitting Provider GENERAL: The patient is of moderate build, not in acute distress. VITAL SIGNS: Temperature 36.8, pulse 67, respiratory rate 16, blood pressure 150/90, oxygen 99% on room air. HEENT: Pupils equal, round and reactive to light. Oral mucosa moist. NECK: No JVD, no neck masses. CARDIOVASCULAR: S1 and S2 heard. Regular rate and rhythm. No murmur, no gallop. RESPIRATORY SYSTEM: Normal AP diameter. No accessory muscle use. No wheezing, no crackles. ABDOMEN: Soft. Bowel sounds are present, nontender, no distention. No CVA tenderness. No guarding, no rigidity. CENTRAL NERVOUS SYSTEM: Cranial nerves II-XII grossly intact, nonfocal. EXTREMITIES: No edema, no erythema. Principal Diagnosis Right renal colic Obstructive right UVJ stone status post stent Discharge Exam GENERAL: Alert and oriented x3. NAD, on RA. HEENT: No pallor, no icterus. Pupils equal, round and reactive to light. Oral mucosa moist. NECK: No JVD, no neck masses. HEART: S1 and S2 heard. Regular rate and rhythm. No murmur, no gallop. RESPIRATORY SYSTEM: Normal AP diameter. No accessory muscle use. No wheezing, no crackles. ABDOMEN: Soft, bowel sounds present, nontender, no distention. No costovertebral angle tenderness on exam. CENTRAL NERVOUS SYSTEM: No facial droop. Speech is clear. Obeys simple commands. Moves extremities. EXTREMITIES: No edema, no erythema seen. Discharge Data Allergies Allergy/AdvReac Type Severity Reaction Status Date / Time No Known Allergies Allergy Verified 11/23/21 11:14 Consultations 11/22/21 20:20 ED Decision to Admit Stat 11/23/21 08:00 Consult Urology Routine Procedures Performed Operation Date: 11/23/21 08:40 Actual Procedures p Cystoscopy Right Retrograde Pyelogram with Stent Placement(Right) - Joao Hammond MD Ordered Studies 11/22/21 17:52 CT abd pelvis IV con only Stat 11/23/21 10:45 FL retrograde includes kub Routine Hospital Course (1) Renal colic: 60-year-old gentleman was managed for the following while in hospital: #. Right renal colic #. Obstructive right UVJ stone Patient presented with right abdominal pain and renal colic Admitting labs reviewed, admitting imaging with right UVJ 10 mm obstructive stone Urology on board, Flomax, Ditropan, Colace, cystoscopy right retrograde pyelogram with stent placement today by Dr. Hammond on 11/23 Patient tolerating regular diet, moving around okay per RN. Patient with no complaints. Patient would like to go home as soon as possible. #. Other chronic medical conditions: HTN, HLD Continue home meds as and when able #. DVT prophylaxis: SCDs Patient being discharged home with following instruction at the point of discharge: Follow-up with your primary care physician within a week time. Follow-up with urology as an outpatient in 1 to 2 weeks time. Taking medication as prescribed. Total Time Total Time Spent Total Time Spent (In Minutes): 35 Discharge Plan Discharge Items Patient Disposition: Home - Self-Care Reason For Visit: ABDOMINAL PAIN Discharge Diagnosis: Right renal colic Obstructive right UVJ stone status post stent Condition on Discharge: Good Activity: Resume your previous activity Non-emergency contact: Primary Care Provider Call non-emergency contact if: you have any medication questions, your pain is not controlled and your temperature is above 101 Follow-up/Referrals: PCP,NO [Primary Care Provider] - Diet: Regular Addtl Attending Provider Instructions: Follow-up with your primary care physician within a week time. Follow-up with urology as an outpatient in 1 to 2 weeks time. Taking medication as prescribed. Pending Studies at Discharge: No Stand-Alone Forms: My [employer], Smoking Cessation Medications and DC Order Prescriptions: New tamsulosin [Flomax] 0.4 mg capsule 0.4 mg PO DAILY Qty: 30 RF: 0 oxybutynin chloride [Ditropan XL] 5 mg tablet extended release 24 hr 5 mg PO DAILY Qty: 20 RF: 0 docusate sodium [Col-Rite] 100 mg capsule 100 mg PO BID Qty: 20 RF: 0 Continued atorvastatin 10 mg tablet 10 mg PO HS RF: 0 aspirin [Aspir-Low] 81 mg Tablet,Delayed Release (Dr/Ec) 81 mg PO HS RF: 0 amlodipine-benazepril 5-20 mg capsule 1 cap PO DAILY RF: 0 garlic Tablet 0 mg PO DAILY RF: 0 coenzyme Q10 [CoQ-10] 100 mg Capsule 100 mg PO DAILY RF: 0 Schizandra 500 mg Capsule 0 mg PO DAILY RF: 0 olive leaf extract 250 mg Capsule 0 mg PO DAILY RF: 0 [place] 3-6-9 1,200 mg Capsule 2 cap PO AMPM RF: 0 L-Arginine(alpha-ketoglutarat) 350 mg Tablet Extended Release 0 mg PO DAILY RF: 0 Herbal Prostate Tab 1 tab PO DAILY RF: 0 Discharge Orders: Discharge Order (Routine); Ordered 11/24/21 Ordered By: Patrick Kenney Admission Data Admit Date/Time: 11/22/21 21:41 Attending Provider: Patrick Kenney Admit Provider: Eric Rodriguez Primary Care Provider: PCP,NO Other Providers: Eric Rodriguez ; Tyler Novak ; Joaquin Ovalle ; Trell Piña. ; Jimena Gamino ; Dominik Webster. ; [address] ; Trinity Tavera ; Brynn Monreal ; [place] ; Brian Vilchis ; Glendy Dunbar ; Alexandria Monreal ; Joao Hammond
== END 2021-11-24 12:05 | disposition home or self-care (01) | DRG 694 ==
LOC: ED 17:24 → INTOOBSV 21:41 → 3W 21:41